=== PATIENT | male | born 1945 ===

== ENCOUNTER 2018-12-20 10:11 | Emergency (ER) | payer MEDICARE ==
--- NOTE | 2018-12-20 11:19 | UC ---
Throat Pain/Nasal Jorge Luis HPI - HPI Summary HPI Summary: 73 y/o male presents to the urgent care c/o sinus congestion w. green nasal discharge and PND for the past 10 days. pt w/ Hx of seasonal allergies. However symptoms started w/ common cold and symptoms are worsen despite taking OTD medication. Last night his Rt eye was red and this morning he woke up w/ yellowish crusting and shut. Also dry cough. He has been doing saline rinses. sinus pain is worse in the morning 10/29. Pt denies fever, SOB, dizziness, chest pain, abdominal pain, N/V/D. - History of Current Complaint Chief Complaint: UCRespiratory Stated Complaint: RESP COMPLAINT Time Seen by Provider: 12/20/18 11:03 Hx Obtained From: Patient Onset/Duration: Gradual Onset, Lasting Days - 10 days, Still Present, Worse Since - this morning w/ left eye w/ yellowish crusting Severity: Moderate Pain Intensity: 4 Pain Scale Used: 0-10 Numeric Cough: Nonproductive Associated Signs & Symptoms: Positive: Sinus Discomfort, Nasal Discharge - yellowish. Negative: Dysphagia, Wheezing, Fever Related History: Seasonal Allergies - Epiglottits Risk Factors Epiglottis Risk Factors: Negative - Allergies/Home Medications Allergies/Adverse Reactions: Allergies Allergy/AdvReac Type Severity Reaction Status Date / Time seasonal allergies Allergy Runny Nose Uncoded 12/20/18 10:50 Home Medications: Home Medications Aspirin 81 mg PO 12/20/18 [History] Azelastine 0.15% NASAL(NF) [Astepro 0.15% NASAL (NF)] 2 spray NASAL BID [History Confirmed 12/20/18] Flaxseed Oil [Linseed Oil] 1 ml MC 12/20/18 [History Confirmed 12/20/18] Fluticasone NASAL SPRAY 50MCG* [Flonase NASAL SPRAY 50MCG*] 2 spray BOTH NARES DAILY 12/20/18 [History Confirmed 12/20/18] LoraTADine TAB(NF) [Claritin 10 MG TAB(NF)] 10 mg PO DAILY 12/20/18 [History Confirmed 12/20/18] Multivitamin [Multivitamins] 1 cap PO 12/20/18 [History] Omeprazole 20 mg PO 12/20/18 [History] Ranitidine TAB (NF) [Zantac TAB (NF)] 150 mg PO BID 12/20/18 [History Confirmed 12/20/18] Simvastatin (NF) [Zocor (NF)] 40 mg PO DAILY 12/20/18 [History Confirmed ] Tadalafil [Cialis] 2.5 mg PO 12/20/18 [History] Testosterone [Testim] 5 gm TD 12/20/18 [History] Thyroid,Pork [Nature-Throid] 32.5 mg PO 12/20/18 [History] diphenhydrAMINE HCl [Benadryl Allergy 25 MG CAP] 25 mg PO 12/20/18 [History] traMADol TAB* [Ultram*] 50 mg PO Q6HR PRN 12/20/18 [History Confirmed 12/20/18] PMH/Surg Hx/FS Hx/Imm Hx Previously Healthy: Yes Endocrine History: Dyslipidemia GI/ History: Gastroesophageal Reflux - Surgical History Surgical History: Yes Surgery Procedure, Year, and Place: tonsils - Family History Known Family History: Positive: Hypertension - Social History Occupation: Retired Lives: With Family Alcohol Use: None Substance Use Type: None Smoking Status (MU): Never Smoked Tobacco Review of Systems All Other Systems Reviewed And Are Negative: Yes Constitutional: Positive: Negative Skin: Positive: Negative Eyes: Positive: Drainage - yellowish, Eye Redness - RT eye redness ENT: Positive: Nasal Discharge - yellowish, Sinus Congestion, Sinus Pain/ Tenderness, Other - PND Respiratory: Positive: Cough - dry Cardiovascular: Positive: Negative Gastrointestinal: Positive: Negative Genitourinary: Positive: Negative Motor: Positive: Negative Neurovascular: Positive: Negative Musculoskeletal: Positive: Negative Neurological: Positive: Headache - sinus pain Psychological: Positive: Negative Is Patient Immunocompromised?: No Physical Exam - Summary Physical Exam Summary: Vitals: reviewed General: Well developed, well-nourished male patient with NAD. Head and face: Normocephalic and atraumatic, Positive tenderness over the frontal and maxillary sinuses.. Eyes: Positive: RT Conjunctiva Inflamed - Visual acuity: WNL,Visual kang: full to confrontation. PERRLA, EOMI intact w/out limitation or complaint of pain. eyelashes clear. yellowish drainage observed. No ciliary flush. No chemosis, No photophobia. Normal fundoscopic exam; no proptosis, exophthalmos, nystagmus. ENT: Ears and TM with normal limits. Nose: edematous and erythematous nasal mucosa with with yellowish discharge and erythematous mucosa. Pharynx with erythema, no exudate. moderate yellowish PND. Neck: Supple, no JVD, no carotid bruits and no lymphadenopathy. Lungs: clear, no rales, no rhonchi, no wheezes. CVS: RRR, S1 and S2 present no murmurs or gallops appreciated. Abdomen: soft nontender with positive bowel sounds. Extremities: no edema noted. Neuro: WNL. Skin: warm and dry Triage Information Reviewed: Yes Vital Signs: Initial Vital Signs Temp 98.4 F 12/20/18 10:45 Pulse 84 12/20/18 10:45 Resp 18 12/20/18 10:45 BP 137/63 12/20/18 10:45 Pulse Ox 98 12/20/18 10:45 Throat Pain/Nasal Course/Dx - Course Course Of Treatment: 73 y/o male presents to the urgent care c/o sinus congestion w. green nasal discharge and PND for the past 10 days. pt w/ Hx of seasonal allergies. However symptoms started w/ common cold and symptoms are worsen despite taking OTD medication. Last night his Rt eye was red and this morning he woke up w/ yellowish crusting and shut. Also dry cough. He has been doing saline rinses. sinus pain is worse in the morning 10. Pt denies fever, SOB, dizziness, chest pain, abdominal pain, N/V/D. Hx obtained. Pt w; acute bacterial sinusitis and RT eye bacterial conjunctivitis on examination. Pt with 10 days of symptoms getting worse. Pt Rx Amoxicillin PO and Polytrim ophthalmic drops. PT advised to continue w/ flonase nasal spray. Discharge instructions explained to Pt. Advised to Return to the clinic or PCP if symptoms do not improve.Pt understood and agreed with plan of care. - Differential Dx/Diagnosis Differential Diagnosis/HQI/PQRI: Pharyngitis, Sinusitis, URI, Other - conjunctivitis Provider Diagnosis: Acute bacterial sinusitis, Conjunctivitis, right eye Discharge - Sign-Out/Discharge Documenting (check all that apply): Patient Departure - D/c home All imaging exams completed and their final reports reviewed: No Studies - Discharge Plan Condition: Stable Disposition: HOME Prescriptions: Amoxicillin PO (*) [Amoxicillin 875 MG (*)] 875 mg PO BID #20 tab Polymyx/Trimethoprim OPTH* [Polytrim OPHTH*] 1 drop RIGHT EYE Q3H #1 btl Patient Education Materials: Sinusitis (ED), Conjunctivitis (ED) Referrals: [facility] [place] [Outside] - 3 Days Xavier John MD [Medical Doctor] - If Needed Additional Instructions: 1- Please increase fluid intake and rest. take full course of antibiotic to avoid resistance 2-continue using Flonase nasal spray as directed to help drain fluid. Also buy saline drops to clear sinuses 3-Apply Polytrim Ophthalmic drops as directed on your Rt eye. Ecourage hand washing 4 Please f/u w/ your PCP or opthlamologist Dr Chino if symptoms do not improve for further management and treatment - Billing Disposition and Condition Condition: STABLE Disposition: Home
== END 2018-12-20 11:48 | disposition home or self-care (01) ==
LOC: UCEAST 10:11
DX: J01.80 Other acute sinusitis (principal); H10.9 Unspecified conjunctivitis; E78.5 Hyperlipidemia, unspecified; K21.9 Gastro-esophageal reflux disease without esophagitis; Z79.82 Long term (current) use of aspirin
CPT/HCPCS: 99202; G0463